=== PATIENT | male | born 2000 ===

== ENCOUNTER 2021-01-11 12:05 | Emergency (ER) | payer OTHER ==
[2021-01-11 13:46] LABS: Appearance,Urine Clear (Clear); Bilirubin,Urine Negative (Negative); Blood,Urine Negative (Negative); Color,Urine Yellow; Glucose,Urine (UA) Negative (Negative); Ketones,Urine Negative (Negative); Leukocyte Esterase,Urine Negative (Negative); Mucus,Urine Occasional /hpf; Nitrite,Urine Negative (Negative); Protein,Urine 1+ (Negative); Specific Gravity,Urine 1.024 (1.001-1.035); WBC,Urine 1 /hpf (0-5)
--- NOTE | 2021-01-11 13:49 | ED ---
General Adult HPI - General Chief complaint: Abdominal Pain Stated complaint: abd pain, vomiting Time Seen by Provider: 01/11/21 12:10 Source: patient, RN notes reviewed, old records reviewed Mode of arrival: ambulatory Limitations: no limitations - History of Present Illness Initial comments: This is a 20-year-old male who presents emergency Department stating he woke up this morning had low abdominal cramping. Patient states he vomited twice this morning he remains mildly nauseated. Patient states she's also been dealing with a little bit of a sore throat for the last year and a half. Patient states she supposed to follow-up with that and has yet to do so. Patient states it seems to got a little bit worse over the last day. Patient denies any fever chills. Patient denies any abdominal pain currently. Patient denies any diarrhea. Patient states he is not lightheaded or dizzy. Patient denies any chest pain or palpitations or difficulty breathing. - Related Data Home Medications Medication Instructions Recorded Confirmed No Known Home Medications 01/11/21 01/11/21 Allergies Allergy/AdvReac Type Severity Reaction Status Date / Time No Known Allergies Allergy Verified 01/11/21 13:50 Review of Systems ROS Statement: Those systems with pertinent positive or pertinent negative responses have been documented in the HPI. ROS Other: All systems not noted in ROS Statement are negative. Past Medical History Additional Past Medical History / Comment(s): sickle cell trait History of Any Multi-Drug Resistant Organisms: None Reported Past Surgical History: No Surgical Hx Reported Past Psychological History: No Psychological Hx Reported Smoking Status: Current every day smoker Past Alcohol Use History: Occasional Past Drug Use History: None Reported General Exam - General Exam Comments Initial Comments: GENERAL: Patient is well-developed and well-nourished. Patient is nontoxic and well- hydrated and is in mild distress. ENT: Neck is soft and supple. No significant lymphadenopathy is noted. Oropharynx seems a little swollen on the right compared to left. Moist mucous membranes. Neck has full range of motion without eliciting any pain. EYES: The sclera were anicteric and conjunctiva were pink and moist. Extraocular movements were intact and pupils were equal round and reactive to light. Eyelids were unremarkable. PULMONARY: Unlabored respirations. Good breath sounds bilaterally. No audible rales rhonchi or wheezing was noted. CARDIOVASCULAR: There is a regular rate and rhythm without any murmurs gallops or rubs. ABDOMEN: Soft and nontender with normal bowel sounds. SKIN: Skin is clear with no lesions or rashes and otherwise unremarkable. NEUROLOGIC: Patient is alert and oriented x3. Cranial nerves II through XII are grossly intact. Motor and sensory are also intact. Normal speech, volume and content. Symmetrical smile. MUSCULOSKELETAL: Normal extremities with adequate strength and full range of motion. LYMPHATICS: No significant lymphadenopathy is noted PSYCHIATRIC: Normal psychiatric evaluation. Limitations: no limitations Course Vital Signs 01/11/21 12:44 Temperature 98.0 F Pulse Rate 69 Respiratory 18 Rate Blood Pressure 94/62 O2 Sat by Pulse 99 Oximetry Medical Decision Making - Medical Decision Making I gave the patient Zofran and he was feeling considerably better. Patient wanted to be discharged home this time. Patient's strep was negative as well. - Lab Data Lab Results 01/11/21 01/11/21 Range/Units 13:19 13:46 Urine Color Yellow Urine Appearance Clear (Clear) Urine pH 6.0 (5.0-8.0) Ur Specific [place] 1.024 (1.001-1.035) Urine Protein 1+ H (Negative) Urine Glucose (UA) Negative (Negative) Urine Ketones Negative (Negative) Urine Blood Negative (Negative) Urine Nitrite Negative (Negative) Urine Bilirubin Negative (Negative) Urine Urobilinogen 2.0 (<2.0) mg/dL Ur Leukocyte Esterase Negative (Negative) Urine WBC 1 (0-5) /hpf Urine Mucus Occasional H (None) /hpf Group A Strep Rapid Negative (Negative) Disposition Clinical Impression: Acute vomiting Disposition: HOME SELF-CARE Condition: Good Instructions (If sedation given, give patient instructions): Acute Nausea and Vomiting (ED) Is patient prescribed a controlled substance at d/c from ED?: No Referrals: Nonstaff,Physician [Primary Care Provider] - 1-2 days Time of Disposition: 14:38
[2021-01-11] MEDS: ONDANSETRON ODT 4 MG TAB PO STA (13:52)
[2021-01-11] MEDS: ONDANSETRON 4 MG ODT STARTER PACK 2 TAB BTL PO STA (13:52)
[2021-01-11 14:54] VITALS: BP 93/60; PULSE 74; RESP 17; TEMP 98.3
== END 2021-01-11 14:49 | disposition home or self-care (01) ==
LOC: EC 12:05
DX: R11.10 Vomiting, unspecified (principal); F17.200 Nicotine dependence, unspecified, uncomplicated
CPT/HCPCS: 81001; 87081; 87430; 99284; S0119